=== PATIENT | female | born 1980 | race Caucasian/White ===

== ENCOUNTER 2022-06-04 07:13 | Day surgery (SDC) | payer BC, SELFPAY ==
[2022-06-04] VITALS (8 sets, daily range): BP systolic 108–116; BP diastolic 69–77; PULSE 67–77; RESP 12–18; TEMP 36.7–36.9; O2SAT 99–100; BMI 24.2
[2022-06-04] MEDS: BUPIVACAINE 0.5% 30 ML INJECTION (07:19)
--- NOTE | 2022-06-04 07:27 | SUR.PREOP ---
SAME DAY SURGERY LOCAL INJECTION SITE VERIFICATION WAS PERFORMED BY SURGEON/PA AND PATIENT PRIOR TO LOCAL ANESTHETIC BEING INJECTED TO OPERATIVE SITE.
--- NOTE | 2022-06-04 12:33 | P.ORPRC_ITS ---
Procedure Note Date of procedure: 06/04/22 Procedure: PREOPERATIVE DIAGNOSIS: 1. Right volar hand benign cyst overlying MCP joint POSTOPERATIVE DIAGNOSIS: 1. Right volar hand benign cyst overlying MCP joint PROCEDURE: 1. Right volar hand benign cyst open excision overlying 5th MCP joint SURGEON: Hiro Arredondo MD. STEM ROLLER OPERATOR: Kevin Napier PA-C - Of note, an assistant professor surgical technology was critical for this case to aid in patient positioning, tissue retraction, limb manipulation/positioning, and closure. ANESTHESIA: Local anesthetic (50:50 mixture of 1% lidocaine plain and 0.5% marcaine plain) IMPLANTS: None TOURNIQUET: None COMPLICATIONS: None evident INDICATIONS: The patient is a pleasant 41-year-old female who has experienced right volar hand growth developing over the course of last few months. It is problematic when she appeals specialist something hard such as the steering wheel, palm weight-bearing such as with plank position or pushups, etc. Nonoperative management has been tried but unsuccessful. Given the failure of nonoperative management, and how this affects daily life, surgery was recommended. DESCRIPTION OF PROCEDURE: Following a thorough discussion of risks, benefits, and alternatives consent was obtained and the operative extremity was marked. The patient was brought to the operating room and placed supine on the operating table. No antibiotics were administered as this was planned to be a local case only. Proper time-out was performed identifying proper patient, site, and procedure. The operative extremity was prepped and draped in the appropriate sterile fashion using ChloraPrep. The limb was exsanguinated and the tourniquet inflated. A longitudinal incision was made overlying the 5th MCP joint in line with the skin creases. Sharp incision through skin and blunt dissection through subcutaneous tissue allowed identification of the cystic structure. This was mobilized from the surrounding tissue with tenotomy scissors in a blunt manner. The cyst was removed completely and sent EN bloc to the pathologist. Hemostasis was achieved. Closure performed after thorough irrigation normal saline via 4-0 nylon. Soft dressings were applied, and the patient was awoken/transferred to the recovery room in stable condition. PLAN: 1. Encourage elevation of the operative extremity. 2. Range of motion of the operative extremity/digits as tolerated. 3. Ibuprofen, acetaminophen and/or Percocet as needed for pain. 4. Follow up with PA visit in 12-16 days for wound check and suture removal.
== END 2022-06-04 09:15 | disposition home or self-care (01) ==
PROVIDERS: PCP Family Medicine; Visit Provider Orthopaedic Surgery Sports Medicine
PROC: (CPT 26160; principal; 2022-06-04 08:15)
DX: M67.441 Ganglion, right hand (principal)
CPT/HCPCS: 26160; 88304; J3490

== ENCOUNTER 2024-10-11 09:59 | Outpatient (CLI) | payer BC, SELFPAY ==
--- NOTE | 2024-10-11 10:57 | P.ANES_ITS ---
Anesthesia Charges Start Date/Time Anesthesia Start Date: 10/11/24 Anesthesia Start Time: 10:28 Stop Date/Time Anesthesia Stop Date: 10/11/24 Anesthesia Stop Time: 10:54 Coding CPT Codes CPT Codes: HE LWR INTST SCR COLSC - 50624 ([id number]) P1 - NORMAL HEALTHY PATIENT, QK - FUEL CELL TEST ENGINEER 2-4 CNCRNT ANES PROC, QX - CORRECTIONAL CASEWORK SPECIALIST SVC W/ MED DIRECTION
--- NOTE | 2024-10-11 10:57 | W.ANESCHARGE ---
Anesthesia Charges Start Date/Time Anesthesia Start Date: 10/11/24 Anesthesia Start Time: 10:28 Stop Date/Time Anesthesia Stop Date: 10/11/24 Anesthesia Stop Time: 10:54 Coding CPT Codes CPT Codes: HE LWR INTST SCR COLSC - 21860 ([id number]) P1 - NORMAL HEALTHY PATIENT, QK - TELEPHONE STATION REPAIRER 2-4 CNCRNT ANES PROC, QX - ENGRAVING SUPERVISOR SVC W/ MED DIRECTION
--- NOTE | 2024-10-11 12:18 | W.ANESCHARGE ---
Anesthesia Charges Start Date/Time Anesthesia Start Date: 10/11/24 Anesthesia Start Time: 10:28 Stop Date/Time Anesthesia Stop Date: 10/11/24 Anesthesia Stop Time: 10:54
== END 2024-10-11 10:00 | disposition home or self-care (01) ==
LOC: OP CLINIC 10:00
PROVIDERS: PCP Family Medicine; Visit Provider Surgery
DX: Z12.11 Encounter for screening for malignant neoplasm of colon (principal)
CPT/HCPCS: 00812; 45378; J2704

== ENCOUNTER 2024-12-14 07:30 | Outpatient (CLI) | payer BC, SELFPAY ==
--- NOTE | 2024-12-14 07:45 | CRLHL7_ITS ---
For Patients: As a result of the Cures Act, medical imaging exams and procedure reports are released immediately into your electronic medical record. You may view this report before your referring provider. If you have questions, please contact your health care provider. INDICATION: BILATERAL SCREENING MAMMOGRAM, ASYMPTOMATIC 44 Y/O FEMALE COMPARISON: - NONE, BASELINE EXAM TECHNIQUE: Digital mammogram in CC and MLO projections including computer-aided detection (CAD) and tomosynthesis. BREAST COMPOSITION: The breasts are heterogeneously dense, which may obscure small masses. FINDINGS: No suspicious findings. ASSESSMENT: BI-RADS 1 Negative RECOMMENDATION: Annual screening mammogram. A lay language report of this examination will be provided to the patient. Dictated by: Jayda Medina MD @ 12/14/2024 19:39:13 (Electronically Signed)
== END 2024-12-14 07:31 | disposition home or self-care (01) ==
LOC: MAMMO 07:31
PROVIDERS: PCP Family Medicine; Visit Provider Family Medicine
DX: Z12.31 Encounter for screening mammogram for malignant neoplasm of breast (principal); R92.333 Mammographic heterogeneous density, bilateral breasts
CPT/HCPCS: 77063; 77067